=== PATIENT | female | born 1985 | race Caucasian/White ===

== ENCOUNTER 2020-10-03 08:30 | Outpatient (CLI) | payer OTHER, SELFPAY ==
--- NOTE | ~2020-10-03 | US_ITS ---
EXAMINATION: US abdomen complete EXAM DATE: 10/03/2020 09:14 INDICATION: Right upper quadrant pain. TECHNIQUE: Multiple grayscale and Doppler images of the complete abdomen were obtained (by a technolo gist who performed the scan) and subsequently reviewed. Comparison is made to prior examination from 05/31/2010. FINDINGS: The abdominal aorta is normal in caliber. Visualized portion IVC is patent. The pancreatic head a nd body are normal in appearance. The pancreatic tail is not visualized. The liver has normal echogenicity and contour. There are no focal liver lesions identified. There is no evidence of intrahepatic biliary duct dilation. Portal venous flow was seen in the hepatopedal , normal direction and has normal Doppler waveform. Common bile duct measures 10 mm, which is normal. Right kidney: There is normal contour and echogenicity. It measures 9.9 x 4.0 x 5.7 centimeters. T here are no focal renal lesions identified. There is no hydronephrosis. Left kidney: There is normal contour and echogenicity. It measures 9.3 x 5.9 x 5.8 centimeters. Th ere are no focal renal lesions identified. There is no hydronephrosis. The spleen measures 10 centimeters and is morphologically normal. IMPRESSION: Unremarkable complete abdominal ultrasound exam. Reviewed, dictated and finalized at location A.
--- NOTE | ~2020-10-03 | US_ITS ---
EXAMINATION: US transvaginal DATE: 10/03/2020 09:15 INDICATION: Pelvic pain and right lower quadrant abdominal pain. TECHNIQUE: Multiple transabdominal and endovaginal sonographic images of the pelvis were obtained. COMPARISON: 05/31/2010 FINDINGS: The uterus measures 9.0 x 5.1 x 5.6 cm. The endometrial complex measures 10 mm in thickness. The rig ht ovary measures 3.4 x 2.3 x 2.4 cm. The left ovary measures 2.7 x 1.4 x 1.6 cm. Vascular flow ident ified in both ovaries on color Doppler There is no free fluid in the pelvis. IMPRESSION: 1. Normal pelvic ultrasound. Reviewed, dictated and finalized at location B.
== END 2020-10-03 08:31 ==
PROVIDERS: Visit Provider Nurse Practitioner
DX: R10.31 Right lower quadrant pain (principal)
CPT/HCPCS: 76700; 76830

== ENCOUNTER 2020-12-12 14:50 | Outpatient (CLI) | payer OTHER, SELFPAY ==
--- NOTE | ~2020-12-12 | CT_ITS ---
EXAMINATION: CT abdomen pelvis wo/w con DATE: 12/12/2020 15:40 INDICATION: Right lower quadrant abdominal pain TECHNIQUE: Computed tomography (CT) of the abdomen and pelvis was performed with 100 cc Omnipaque 350 intravenous contrast. Automated exposure control and iterative reconstruction technique were employe d. Exam dose: 1226.21 mGy-cm total exam DLP. COMPARISON: None. FINDINGS: Mild emphysematous changes of the lungs. Normal heart size. No pericardial or pleural effusion. The liver, gallbladder, bile ducts, spleen, pancreas, pancreatic duct, and adrenal glands and kidneys are unremarkable. No urinary tract calculus or hydroureteronephrosis is detected. Normal caliber of the abdominal aorta. No intraperitoneal or retroperitoneal mass lesion or adenopath y or ascites. There is a prominent amount of fecal matter throughout the included colon. No bowel obstruction or blanca wel wall thickening is evident. Normal appendix extends to the midline. No intraperitoneal free air. Small fat-containing umbilical hernia. Included skeletal structures are unremarkable. IMPRESSION: Normal appendix Reviewed, dictated and finalized at [facility]. Reviewed, dictated and finalized at location A. IMPRESSION: Normal appendix
== END 2020-12-12 14:51 ==
LOC: MICIMG 14:52
DX: R10.9 Unspecified abdominal pain (principal)
CPT/HCPCS: 74178; Q9967